=== PATIENT | male | born 1970 | race Caucasian/White ===

== ENCOUNTER 2021-02-13 12:03 | Outpatient (CLI) | payer OTHER, SELFPAY ==
--- NOTE | ~2021-02-13 | XR_ITS ---
EXAMINATION: XR hand LT 2V DATE: 02/13/2021 12:54 INDICATION: Polyarthralgia. TECHNIQUE: 2 views of left hand were obtained. COMPARISON: None. FINDINGS: Bone alignment is normal. No fracture. There is mild osteoarthritis of triscaphe joint, sec ond and third metacarpophalangeal joints, and fifth distal interphalangeal joint. IMPRESSION: 1. Mild polyarticular osteoarthritis. Reviewed, dictated and finalized at location A.
--- NOTE | ~2021-02-13 | XR_ITS ---
EXAMINATION: XR hand RT 2V DATE: 02/13/2021 12:54 INDICATION: Polyarthralgia. TECHNIQUE: 2 views of right hand were obtained. COMPARISON: None. FINDINGS: Bone alignment is normal. No fracture. There are erosions at second proximal interphalangea l joint. There is mild osteoarthritis of third metacarpophalangeal joint. IMPRESSION: 1. Erosions at second proximal interphalangeal joint, consistent with inflammatory arthropathy such a s psoriatic arthritis. Reviewed, dictated and finalized at location A. IMPRESSION: 1. Erosions at second proximal interphalangeal joint, consistent with inflammat ory arthropathy such as psoriatic arthritis.
--- NOTE | ~2021-02-13 | XR_ITS ---
EXAMINATION: XR lumbar spine 2-3V DATE: 02/13/2021 12:54 INDICATION: Polyarthralgia. TECHNIQUE: 3 views of lumbar spine were obtained. COMPARISON: None. FINDINGS: There is 3 degrees dextrocurvature of lumbar spine. Vertebral body heights are normal. Ther e is mildly decreased disc height at L4-L5 and severely decreased disc height at L5-S1. There are end plate osteophytes at most levels. There is multilevel mild facet joint osteoarthritis. IMPRESSION: 1. Severe lower lumbar spondylosis. Reviewed, dictated and finalized at location A.
--- NOTE | ~2021-02-13 | XR_ITS ---
XR knee RT min 4V DATE: 02/13/2021 13:56 INDICATION: Right knee pain TECHNIQUE: [place] and standing AP, PA and lateral views COMPARISON: None FINDINGS: Diffuse osteopenia. There is joint space narrowing and prominent particular spurring at the patellofemoral joint. There has mild periarticular spurring at the medial compartment. No fracture or dislocation or joint effusion. No radiopaque intra-articular loose body or chondrocalc inosis. No periosteal reaction or bone destruction. IMPRESSION: Osteoarthritis involving particularly the patellofemoral and to a lesser extent medial co mpartments Diffuse osteopenia Reviewed, dictated and finalized at location A. IMPRESSION: Osteoarthritis involving particularly the patellofemoral and to a l mary grace extent medial compartments Diffuse osteopenia
--- NOTE | ~2021-02-13 | XR_ITS ---
EXAMINATION: XR foot RT 2V DATE: 02/13/2021 12:54 INDICATION: Polyarthralgia. TECHNIQUE: 2 views of right foot were obtained. COMPARISON: None. FINDINGS: Bone alignment is normal. No fracture. There are erosions at the interphalangeal joints of all of the toes. There are enthesophytes at the posterior and plantar aspects of calcaneal tuberosity . IMPRESSION: 1. Inflammatory arthritis with an interphalangeal joint predominance, most likely psoriatic arthritis . Reviewed, dictated and finalized at location A. IMPRESSION: 1. Inflammatory arthritis with an interphalangeal joint predominance, most like ly psoriatic arthritis.
--- NOTE | ~2021-02-13 | XR_ITS ---
EXAMINATION: XR foot LT 2V DATE: 02/13/2021 12:54 INDICATION: Polyarthralgia. TECHNIQUE: 2 views of left foot were obtained. COMPARISON: None. FINDINGS: There is mild hallux valgus. No fracture. There is mild osteoarthritis of first metatarsoph alangeal joint. There are erosions of all of the interphalangeal joints. There are enthesophytes at t he posterior and plantar aspects of calcaneal tuberosity. IMPRESSION: 1. Inflammatory arthritis with an interphalangeal joint predominance, most likely psoriatic arthritis . Reviewed, dictated and finalized at location A. IMPRESSION: 1. Inflammatory arthritis with an interphalangeal joint predominance, most like ly psoriatic arthritis.
--- NOTE | ~2021-02-13 | XR_ITS ---
EXAMINATION: XR chest 2V DATE: 02/13/2021 12:54 INDICATION: Polyarthralgia. TECHNIQUE: Frontal and lateral views of the chest were obtained. COMPARISON: None. FINDINGS: The chest demonstrates clear lungs without pneumonia, pleural effusion, or pneumothorax. Th e heart size is normal. IMPRESSION: 1. No acute cardiopulmonary disease. Reviewed, dictated and finalized at location A.
--- NOTE | ~2021-02-13 | XR_ITS ---
EXAMINATION: XR sacroiliac joints min 3V DATE: 02/13/2021 12:54 INDICATION: Polyarthralgia. TECHNIQUE: 3 views of the sacroiliac joints were obtained. COMPARISON: None. FINDINGS: Bone alignment is normal. No fracture. There is severe lower lumbar spondylosis. The sacroi liac joints are normal. IMPRESSION: 1. Normal sacroiliac joints. Reviewed, dictated and finalized at location A.
--- NOTE | ~2021-02-13 | XR_ITS ---
XR knee LT min 4V DATE: 02/13/2021 13:56 INDICATION: Left knee pain TECHNIQUE: [place], standing AP, PA and lateral views COMPARISON: None FINDINGS: Diffuse osteopenia. There is prominent joint space narrowing and periarticular spurring at the patellofemoral joint. Mild periarticular spurring at the lateral compartment. No fracture or dislocation or joint effusion. No radiopaque intra-articular loose body or chondrocalc inosis. No periosteal reaction or bone destruction IMPRESSION: Osteoarthritis, involving particularly the patellofemoral compartment Osteopenia Reviewed, dictated and finalized at location A. IMPRESSION: Osteoarthritis, involving particularly the patellofemoral compartme nt Osteopenia
== END 2021-02-13 12:04 | disposition home or self-care (01) ==
PROVIDERS: PCP Family Medicine Sports Medicine; Visit Provider Physician Assistant
DX: M25.50 Pain in unspecified joint (principal); M47.816 Spondylosis without myelopathy or radiculopathy, lumbar region; M13.872 Other specified arthritis, left ankle and foot; M15.9 Polyosteoarthritis, unspecified; M85.88 Other specified disorders of bone density and structure, other site
CPT/HCPCS: 71046; 72100; 72202; 73120; 73560; 73564; 73620

== ENCOUNTER 2021-06-06 19:20 | Emergency (ER) | payer OTHER, SELFPAY ==
--- NOTE | ~2021-06-06 | XR_ITS ---
XR chest 2V DATE: 06/06/2021 19:51 INDICATION: Chest pain TECHNIQUE: [place] and lateral views COMPARISON: 02/13/2021 2 view chest FINDINGS: Normal heart size. No hilar or mediastinal enlargement. No pulmonary infiltrate or consolid ation, pleural effusion or pulmonary vascular congestion or pneumothorax is detected. Degenerative spurring of the thoracic spine. IMPRESSION: No active cardiopulmonary disease Reviewed, dictated and finalized at location A. ERVATION PLANNER
[2021-06-06 19:26] VITALS: BP 158/90; PULSE 75; RESP 20; TEMP 36.9; O2SAT 100
--- NOTE | 2021-06-06 19:32 | ECG_ITS ---
Measurements Intervals [place] Rate: 68 P: 62 MN: 160 QRS: 29 QRSD: 90 T: -11 QT: 392 QTc: 418 Interpretive Statements SINUS RHYTHM BORDERLINE T WAVE ABNORMALITY- INFERIOR LEADS BASELINE ARTIFACT- I, III, AVR, AVL, AVF, V1-V2 BORDERLINE ECG Electronically Signed On 06-06-2021 20:42:04 STRUCTURAL ANALYSIS ENGINEER by Jamil Arias D.O.
[2021-06-06] MEDS: ASPIRIN 81 MG CHEWABLE TABLET 324 MG PO (21:00)
[2021-06-06 21:47] LABS: Basophils Percent Auto 0.3 % (0.2-1.2); Eosinophils Absolute Auto 0.1 K/mm3 (0-0.3); Eosinophils Percent Auto 1.5 % (0-4.4); Hematocrit 46.9 % (42.0-52.0); Hemoglobin 16.5 g/dL (14.0-18.0); Immature Granulocyte Absolute 0.01 K/mm3 (0.00-0.031); Immature Granulocyte Percent A 0.1 % (0-0.5); Lymphocytes Percent Auto 39.1 % (18.3-44.2); Mean Corpuscular HGB Conc 35.2 g/dl (32-36); Mean Corpuscular Hemoglobin 32.5 pg (26-34); Mean Corpuscular Volume 92.5 fl (80-100); Monocytes Absolute Auto 0.6 K/mm3 (0.1-0.6); Monocytes Percent Auto 6.9 % (2.6-8.5); Neutrophils Absolute Auto 4.7 K/mm3 (1.3-6.7); Neutrophils Percent Auto 52.1 % (45.5-73.1); Platelet Count Result 210 k/mm3 (150-375); Red Blood Count 5.07 M/mm3 (4.6-6.20); Red Cell Distribution Width 12.4 % (11.5-14.5)
[2021-06-06 21:56] LABS: Prothrombin Time 12.6 Seconds (11.1-14.7)
[2021-06-06 21:57] LABS: Alanine Aminotransferase 41 U/L (4-50); Albumin Level 4.8 g/dL (3.5-5.1); Alkaline Phosphatase 60 U/L (38-126); Anion Gap 3 mmol/L (8-16); Aspartate Amino Transferase 40 U/L (17-59); Bilirubin,Total 0.7 mg/dL (0.2-1.3); Blood Urea Nitrogen 9 mg/dL (9-20); Calcium 9.2 mg/dL (8.4-10.2); Carbon Dioxide 33 mmol/L (22-30); Chloride 101 mmol/L (98-107); Estimated CRCL calculation 115 ml/min; Estimated Glomerular Filt Rate > 60; Glucose 91 mg/dL (65-110); Lipase 41 U/L (23-300); Partial Thromboplastin Time 30.8 SECONDS (22.3-36.8); Potassium 4.2 mmol/L (3.4-5.0); Sodium 137 mmol/L (137-145)
[2021-06-06 22:09] LABS: Troponin I < 0.012 ng/mL (0.000-0.034)
[2021-06-06] MEDS: Please add drug allergy info to patient profile. 1 EACH XX (22:35)
[2021-06-06 22:45] VITALS: BP 132/82; PULSE 61; RESP 18; TEMP 36.6; O2SAT 99
--- NOTE | 2021-06-06 22:53 | ED.GENADULT ---
HPI - General Adult General Chief complaint: Chest Pain Stated complaint: chest pain/ epigastric Time Seen by Provider: 06/06/21 22:34 History of Present Illness HPI narrative: Patient is a 50-year-old gentleman who presents the emergency department with chief complaint of chest pain. Patient reports for the last month he has had discomfort in his left side of his chest. Patient states that its been bothering him the complaint time and not coming and going. Patient states that of time he arrived to the emergency department today he had a initial bowel movement started to feel little better and then had a second large bowel movement and feels much better at this time. The patient denies diaphoresis denies shortness of breath reports just has history of hypothyroidism rheumatoid arthritis and he does smoke. Patient denies history of cardiac disease Related Data Allergies Allergy/AdvReac Type Severity Reaction Status Date / Time Penicillins Allergy Rash Verified 06/06/21 21:36 Review of Systems Review of Systems: A 10 system review of systems was completed on the patient and is negative except for what is stated in the HPI. Nursing and ancillary documentation was reviewed. Exam Narrative: GENERAL: Well-appearing, well-nourished, and in no acute distress. HEAD: Normocephalic, atraumatic. EYES: PERRLA and EOMI. ENT: Nares clear, no rhinorrhea or epistaxis. Mucous membranes moist. NECK: Supple. CHEST: Clear to auscultation. No respiratory distress. HEART: Regular rate and rhythm. No murmur heard. Normal peripheral pulses. ABDOMEN: Soft, nontender, nondistended, normal active bowel sounds. EXTREMITIES: Normal range of motion. No edema. SKIN: Warm, dry, no rash. NEURO: No focal deficits. Alert and oriented x3. PSYCH: Normal mood and affect. Course Course Emergency Course: EKG sinus rhythm rate of [address] elevation or ST depression Vital Signs Vital signs: Vital Signs Temperature 36.9 C 06/06/21 19:26 Pulse Rate 75 06/06/21 19:26 Respiratory Rate 20 06/06/21 19:26 Blood Pressure 158/90 H 06/06/21 19:26 Pulse Oximetry 100 06/06/21 19:26 Temperature 36.6 C 06/06/21 22:45 Pulse Rate 61 06/06/21 22:45 Respiratory Rate 18 06/06/21 22:45 Blood Pressure 132/82 06/06/21 22:45 Pulse Oximetry 99 06/06/21 22:45 Medical Decision Making Vital Signs Vital Signs: Vital Signs Temperature 36.9 C 06/06/21 19:26 Pulse Rate 75 06/06/21 19:26 Respiratory Rate 20 06/06/21 19:26 Blood Pressure 158/90 H 06/06/21 19:26 Pulse Oximetry 100 06/06/21 19:26 Temperature 36.6 C 06/06/21 22:45 Pulse Rate 61 06/06/21 22:45 Respiratory Rate 18 06/06/21 22:45 Blood Pressure 132/82 06/06/21 22:45 Pulse Oximetry 99 06/06/21 22:45 Lab Data Result diagrams: 06/06/21 21:38 06/06/21 21:39 Labs: Lab Results 06/06/21 06/06/21 06/06/21 Range/Units 21:38 21:39 21:39 WBC 9.0 (4.5-10.0) K/mm3 RBC 5.07 (4.6-6.20) M/mm3 Hgb 16.5 (14.0-18.0) g/dL Hct 46.9 (42.0-52.0) % MCV 92.5 (80-100) fl MCH 32.5 (26-34) pg MCHC 35.2 (32-36) g/dl RDW 12.4 (11.5-14.5) % Plt Count 210 (150-375) k/mm3 MPV 10.0 (7.4-10.4) fl Immature Gran % (Auto) 0.1 (0-0.5) % Neut % (Auto) 52.1 (45.5-73.1) % Lymph % (Auto) 39.1 (18.3-44.2) % [place] % (Auto) 6.9 (2.6-8.5) % Eos % (Auto) 1.5 (0-4.4) % Baso % (Auto) 0.3 (0.2-1.2) % Lymph # (Auto) 3.50 H (0.9-3.2) K/mm3 [place] # (Auto) 0.6 (0.1-0.6) K/mm3 Eos # (Auto) 0.1 (0-0.3) K/mm3 Baso # (Auto) 0.0 (0.0-0.1) K/mm3 Abs Immat Gran (auto) 0.01 (0.00-0.031) K/mm3 Absolute Neuts (auto) 4.7 (1.3-6.7) K/mm3 Absolute Nucleated RBC 0.0 (0.0-0.012) K/mm3 Nucleated RBC % 0.0 (0.0-0.2) % PT 12.6 (11.1-14.7) Seconds INR 1.0 APTT 30.8 (22.3-36.8) SECONDS Sodium 137 (137-145) mmol/L Potassium 4.2 (3
== END 2021-06-06 23:45 | disposition home or self-care (01) ==
PROVIDERS: Emergency Provider Emergency Medicine; PCP Family Medicine Sports Medicine
DX: R07.89 Other chest pain (principal); R94.31 Abnormal electrocardiogram [ECG] [EKG]
CPT/HCPCS: 36415; 71046; 80053; 83690; 84484; 85025; 85610; 85730; 93005; 99284; A9270

== ENCOUNTER 2022-02-11 16:37 | Emergency (ER) | payer OTHER, SELFPAY ==
--- NOTE | ~2022-02-11 | CT_ITS ---
EXAMINATION: CT abdomen pelvis w con DATE: 02/11/2022 20:41 INDICATION: Abdominal bloating. TECHNIQUE: Computed tomography (CT) of the abdomen and pelvis was performed with 100 cc Omnipaque 350 intravenous contrast. The dose-length product was 1239.67 mGy-cm. Automated exposure control and ite rative reconstruction technique were employed. COMPARISON: None. FINDINGS: There is dependent atelectasis. Heart size normal. No significant pleural or pericardial ef fusion. The liver, spleen, pancreas, adrenal glands and kidneys are unremarkable. Nonobstructive silvana l gas pattern. No free air or free fluid. Colonic diverticulosis without evidence for diverticulitis. No significant vascular abnormality. No lymphadenopathy. There is degenerative disc disease at L4-5 and L5-S1. No acute fracture or traumatic malalignment. IMPRESSION: 1. No acute abdominal abnormality. Reviewed, dictated and finalized at location A.
[2022-02-11 16:41] VITALS: BP 141/82; PULSE 85; RESP 20; TEMP 36.9; O2SAT 100
[2022-02-11 17:00] LABS: Basophils Percent Auto 0.3 % (0.2-1.2); Eosinophils Absolute Auto 0.2 K/mm3 (0-0.3); Eosinophils Percent Auto 1.8 % (0-4.4); Hematocrit 48.1 % (42.0-52.0); Hemoglobin 16.6 g/dL (14.0-18.0); Immature Granulocyte Absolute 0.03 K/mm3 (0.00-0.031); Immature Granulocyte Percent A 0.3 % (0-0.5); Lymphocytes Absolute Auto 2.66 K/mm3 (0.9-3.2); Lymphocytes Percent Auto 27.3 % (18.3-44.2); Mean Corpuscular HGB Conc 34.5 g/dl (32-36); Mean Corpuscular Hemoglobin 32.9 pg (26-34); Mean Corpuscular Volume 95.4 fl (80-100); Mean Platelet Volume 10.1 fl (7.4-10.4); Monocytes Absolute Auto 0.5 K/mm3 (0.1-0.6); Monocytes Percent Auto 5.5 % (2.6-8.5); Neutrophils Absolute Auto 6.3 K/mm3 (1.3-6.7); Neutrophils Percent Auto 64.8 % (45.5-73.1); Platelet Count Result 270 k/mm3 (150-375); Red Blood Count 5.04 M/mm3 (4.6-6.20); Red Cell Distribution Width 13.7 % (11.5-14.5); White Blood Count 9.8 K/mm3 (4.5-10.0)
[2022-02-11 17:10] LABS: Alanine Aminotransferase 40 U/L (6-50); Albumin Level 4.8 g/dL (3.5-5.1); Alkaline Phosphatase 72 U/L (38-126); Anion Gap 10 mmol/L (8-16); Aspartate Amino Transferase 35 U/L (17-59); Bilirubin,Total 0.8 mg/dL (0.2-1.3); Blood Urea Nitrogen 17 mg/dL (9-20); Carbon Dioxide 28 mmol/L (22-30); Chloride 103 mmol/L (98-107); Estimated CRCL calculation 116 ml/min; Estimated Glomerular Filt Rate > 60; Glucose 85 mg/dL (65-110); Potassium 4.4 mmol/L (3.4-5.0); Sodium 141 mmol/L (137-145)
[2022-02-11 17:11] LABS: INR 0.9; Prothrombin Time 12.2 Seconds (11.1-14.7)
[2022-02-11 17:12] LABS: Partial Thromboplastin Time 29.6 SECONDS (22.3-36.8)
--- NOTE | 2022-02-11 19:29 | ED.GENADULT ---
HPI - General Adult General Chief complaint: GI Bleed Stated complaint: dark tarry stools Time Seen by Provider: 02/11/22 19:20 History of Present Illness HPI narrative: 51-year-old male presented the emergency department for evaluation of sore throat heartburn and dark stools. Patient had been on Humira in the beginning of the year for psoriatic arthritis and states he may have developed a GI bleed from that, he was having similar symptoms to the Humira Patient stopped the Humira and has since been taking methotrexate. Patient states over the last few days he has had increasing sore throat heartburn and some dark stools. Patient denies any associated abdominal pain but does report abdominal bloating. Patient does have a history of psoriatic arthritis Related Data Allergies Allergy/AdvReac Type Severity Reaction Status Date / Time Penicillins Allergy Rash Verified 06/06/21 21:36 Review of Systems Review of Systems: CONSTITUTIONAL: Denies fever, chills, or sweats. EYES: Denies visual changes, redness, or discharge. ENT: Denies rhinorrhea, congestion, sore throat, or otalgia. CARDIOVASCULAR: Denies chest pain, palpitations, or edema. RESPIRATORY: Denies cough or dyspnea. GASTROINTESTINAL: See HPI GENITOURINARY: Denies dysuria or hematuria. SKIN: Denies rash or itching. MUSCULOSKELETAL: Denies back pain, joint pain, or myalgia. NEUROLOGIC: Denies headache, numbness, or weakness. Exam Narrative: APPEARANCE: Well appearing, no pain, no distress, well-nourished. HEAD: normocephalic, atraumatic. EYES: PERRLA/EOMI, conjunctivae clear. NOSE: Normal no drainage THROAT: Pharynx clear, no exudate. NECK: Supple. No adenopathy, no masses. RESPIRATORY: Airway patent, respirations nonlabored. Clear to auscultation bilaterally, no rales, rhonchi, wheezing. CARDIOVASCULAR: Regular rate and rhythm without murmurs rubs or gallops. ABDOMINAL: Soft, nontender, nondistended, normal bowel sounds MUSCULOSKELETAL: Moves all extremities. Strength/ROM intact, No edema, No calf tenderness. NEURO: Alert. Cranial nerves II through XII intact. Grossly intact SKIN: Warm, dry. Normal Color Course Course Emergency Course: Patient was Hemoccult negative on the [facility]. Patient's labs are within normal limits. Patient had a CT scan showing no acute abdominal abnormality. Patient was updated on results his exam labs and CT. Patient was encouraged of close follow-up with his primary care physician. All question concerns were addressed. Vital Signs Vital signs: Vital Signs Temperature 98.5 F 02/11/22 16:41 Pulse Rate 85 02/11/22 16:41 Respiratory Rate 20 02/11/22 16:41 Blood Pressure 141/82 H 02/11/22 16:41 Pulse Oximetry 100 02/11/22 16:41 Oxygen Delivery Room Air 02/11/22 16:41 Temperature 98.5 F 02/11/22 16:41 Pulse Rate 85 02/11/22 16:41 Respiratory Rate 20 02/11/22 16:41 Blood Pressure 141/82 H 02/11/22 16:41 Pulse Oximetry 100 02/11/22 16:41 Oxygen Delivery Room Air 02/11/22 16:41 Medical Decision Making Vital Signs Vital Signs: Vital Signs Temperature 98.5 F 02/11/22 16:41 Pulse Rate 85 02/11/22 16:41 Respiratory Rate 20 02/11/22 16:41 Blood Pressure 141/82 H 02/11/22 16:41 Pulse Oximetry 100 02/11/22 16:41 Oxygen Delivery Room Air 02/11/22 16:41 Temperature 98.5 F 02/11/22 16:41 Pulse Rate 85 02/11/22 16:41 Respiratory Rate 20 02/11/22 16:41 Blood Pressure 141/82 H 02/11/22 16:41 Pulse Oximetry 100 02/11/22 16:41 Oxygen Delivery Room Air 02/11/22 16:41 Lab Data Result diagrams: 02/11/22 16:52 02/11/22 16:52 Labs: Lab Results 02/11/22 02/11/22 02/11/22 Range/Units 16:52 16:52 16:52 WBC 9.8 (4.5-10.0) K/mm3 RBC 5.04 (4.6-6.20) M/mm3 Hgb 16.6 (14.0-18.0) g/dL Hct 48.1 (42.0-52.0) % MCV 95.4 (80-100) fl MCH 32.9 (26-34) pg MCHC 34.5 (32-36) g/dl RDW 13.7 (11.5-14.
== END 2022-02-11 21:19 | disposition home or self-care (01) ==
PROVIDERS: Emergency Medicine; Emergency Provider Emergency Medicine; PCP Family Medicine Sports Medicine
DX: R14.0 Abdominal distension (gaseous) (principal); K59.00 Constipation, unspecified; L40.50 Arthropathic psoriasis, unspecified
CPT/HCPCS: 36415; 74177; 80053; 85025; 85610; 85730; 86850; 86900; 86901; 87880; 99284; Q9967

== ENCOUNTER 2022-09-05 09:24 | Emergency (ER) | payer OTHER, SELFPAY ==
[2022-09-05] VITALS (7 sets, daily range): BP systolic 114–126; BP diastolic 67–87; PULSE 62–109; RESP 18; O2SAT 99–100
--- NOTE | ~2022-09-05 | CT_ITS ---
EXAMINATION: CT abdomen pelvis w con DATE: 09/05/2022 12:44 INDICATION: Left buttock/perirectal abscess. TECHNIQUE: Computed tomography (CT) of the abdomen and pelvis was performed with 100 mL Omnipaque-350 intravenous contrast. Automated exposure control and iterative reconstruction technique were employe d. The dose-length product was 1154.95 mGy-cm. COMPARISON: 02/11/2022 FINDINGS: Mild dependent atelectasis in bilateral lower lobes. Heart size is normal. No pericardial or pleural effusion. Liver, gallbladder, spleen, pancreas, bilateral adrenal glands and kidneys are normal. Anuradha ls including the appendix are normal. Bladder and prostate are normal. No free intraperitoneal gas or fluid. No pathologically enlarged abdominal or pelvic lymphadenopathy. There is prominent stranding and several foci of gas in the subcutaneous fat of the superficial post anal space at the left inferior aspect of the left gluteal cleft which all remain superficial to the levator ani muscles. Discussion with Dr. Brooks there is open draining wound at the skin surface wh ich can account for the soft tissue gas. No evident extension to the deep post anal space. No evident drainable abscess. IMPRESSION: 1. Cellulitis with stranding and soft tissue gas in the superficial post anal space consistent with c ellulitis. No loculated fluid containing abscess or extension deep to the levator ani muscles. Reviewed, dictated and finalized at location A. IMPRESSION: 1. Cellulitis with stranding and soft tissue gas in the superficial post anal s pace consistent with cellulitis. No loculated fluid containing abscess or exten isiah deep to the levator ani muscles.
[2022-09-05 10:35] LABS: Basophils Percent Auto 0.3 % (0.2-1.2); Eosinophils Absolute Auto 0.2 K/mm3 (0-0.3); Eosinophils Percent Auto 2.1 % (0-4.4); Hematocrit 42.3 % (42.0-52.0); Hemoglobin 14.5 g/dL (14.0-18.0); Immature Granulocyte Absolute 0.17 K/mm3 (0.00-0.031); Immature Granulocyte Percent A 1.5 % (0-0.5); Lymphocytes Absolute Auto 1.44 K/mm3 (0.9-3.2); Lymphocytes Percent Auto 12.3 % (18.3-44.2); Mean Corpuscular HGB Conc 34.3 g/dl (32-36); Mean Corpuscular Hemoglobin 32.4 pg (26-34); Mean Corpuscular Volume 94.6 fl (80-100); Mean Platelet Volume 8.9 fl (7.4-10.4); Monocytes Absolute Auto 0.5 K/mm3 (0.1-0.6); Monocytes Percent Auto 3.9 % (2.6-8.5); Neutrophils Absolute Auto 9.4 K/mm3 (1.3-6.7); Neutrophils Percent Auto 79.9 % (45.5-73.1); Platelet Count Result 474 k/mm3 (150-375); Red Blood Count 4.47 M/mm3 (4.6-6.20); White Blood Count 11.7 K/mm3 (4.5-10.0)
[2022-09-05 10:47] LABS: Prothrombin Time 13.6 Seconds (11.1-14.7)
[2022-09-05 10:48] LABS: Partial Thromboplastin Time 30.7 SECONDS (22.3-36.8)
[2022-09-05 10:50] LABS: Alanine Aminotransferase 27 U/L (6-50); Albumin Level 3.6 g/dL (3.5-5.1); Alkaline Phosphatase 83 U/L (38-126); Anion Gap 7 mmol/L (8-16); Aspartate Amino Transferase 21 U/L (17-59); Bilirubin,Total 0.7 mg/dL (0.2-1.3); Blood Urea Nitrogen 11 mg/dL (9-20); Calcium 8.5 mg/dL (8.4-10.2); Carbon Dioxide 30 mmol/L (22-30); Chloride 101 mmol/L (98-107); Estimated CRCL calculation 113 ml/min; Estimated Glomerular Filt Rate > 60; Glucose 132 mg/dL (65-110); Potassium 3.3 mmol/L (3.4-5.0); Sodium 138 mmol/L (137-145)
--- NOTE | 2022-09-05 11:33 | ED.GENADULT ---
HPI - General Adult General Chief complaint: GI Bleed Stated complaint: bleeding hemorrhoid Time Seen by Provider: 09/05/22 10:46 History of Present Illness HPI narrative: 51-year-old male presented to the emergency department for evaluation of left buttock pain for which he suspected was an evolving hemorrhoid. Patient states approximately 2 weeks ago he first noticed the pain around the anus. Patient states he did have follow-up with his primary care physician and the hemorrhoid was confirmed. Patient states he continued to have worsening pain and symptoms. Patient states a few weeks ago he did have onset of fever. Patient reports that he has also had some drainage over the last few days. Patient denies any prior history of hemorrhoids and denies any prior history of perirectal or perianal abscesses Related Data Allergies Allergy/AdvReac Type Severity Reaction Status Date / Time Penicillins Allergy Rash Verified 06/06/21 21:36 Review of Systems Review of Systems: All systems reviewed & are unremarkable except as noted in HPI and below Exam Narrative: APPEARANCE: Well appearing, no pain, no distress, well-nourished. HEAD: normocephalic, atraumatic. EYES: PERRLA/EOMI, conjunctivae clear. NOSE: Normal no drainage NECK: Supple. No adenopathy, no masses. RESPIRATORY: Airway patent, respirations nonlabored. Clear to auscultation bilaterally, no rales, rhonchi, wheezing. CARDIOVASCULAR: Regular rate and rhythm without murmurs rubs or gallops. Rectal exam: Large draining abscess on left buttock ABDOMINAL: Soft, nontender, nondistended, normal bowel sounds MUSCULOSKELETAL: Moves all extremities. Strength/ROM intact, No edema, No calf tenderness. NEURO: Alert. Cranial nerves II through XII intact. Grossly intact SKIN: Warm, dry. Normal Color Course Course Emergency Course: 51-year-old male presented the emergency department for evaluation of a draining abscess on his buttock. Patient is afebrile but does have a leukocytosis of 11.7. Patient's CMP is similar to his baseline. CT scan did show a draining abscess with no involvement of the deep structures. Surgery was consulted and Dr. Ruiz will see the patient as consult. Cipro and Flagyl in the emergency department. Patient was also discharged home on Cipro and Flagyl. Patient was encouraged to do sitz bath. Patient was updated on the importance of close follow-up with surgery. Patient was comfortable with the plan with discharge and close follow-up. All question concerns were addressed. Patient was well-appearing at time of discharge. Vital Signs Vital signs: Vital Signs Pulse Rate 109 H 09/05/22 10:10 Respiratory Rate 18 09/05/22 10:10 Blood Pressure 126/87 09/05/22 10:10 Pulse Oximetry 99 09/05/22 10:10 Oxygen Delivery Room Air 09/05/22 10:10 Pulse Rate 71 09/05/22 16:56 Respiratory Rate 18 09/05/22 16:56 Blood Pressure 114/71 09/05/22 16:56 Pulse Oximetry 99 09/05/22 16:56 Oxygen Delivery Room Air 09/05/22 10:10 Medical Decision Making Vital Signs Vital Signs: Vital Signs Pulse Rate 109 H 09/05/22 10:10 Respiratory Rate 18 09/05/22 10:10 Blood Pressure 126/87 09/05/22 10:10 Pulse Oximetry 99 09/05/22 10:10 Oxygen Delivery Room Air 09/05/22 10:10 Pulse Rate 71 09/05/22 16:56 Respiratory Rate 18 09/05/22 16:56 Blood Pressure 114/71 09/05/22 16:56 Pulse Oximetry 99 09/05/22 16:56 Oxygen Delivery Room Air 09/05/22 10:10 Lab Data Lab results reviewed: Yes I reviewed the patient's lab results. 09/05/22 10:27 09/05/22 10:27 Labs: Lab Results 09/05/22 Range/Units 10:27 WBC 11.7 H (4.5-10.0) K/mm3 RBC 4.47 L (4.6-6.20) M/mm3 Hgb 14.5 (14.0-18.0) g/dL Hct 42.3 (42.0-52.0) % MCV 94.6 (80-100) fl MCH 32.4 (26-34) pg MCHC 34.3 (32-36) g/dl RDW 13.0 (11.5-14.5) % Plt Count 474 H D (150-375) k/mm3 MPV 8.9 (7.4-10
[2022-09-05] MEDS: metroNIDAZOLE 500 MG/ISO 100ML 500 MG/100 ML BAG 100 MG IVPB (14:11)
== END 2022-09-05 16:59 | disposition home or self-care (01) ==
PROVIDERS: Emergency Provider Emergency Medicine; PCP Family Medicine Sports Medicine
DX: L02.31 Cutaneous abscess of buttock (principal)
CPT/HCPCS: 36415; 74177; 80053; 85025; 85610; 85730; 86850; 86900; 86901; 96365; 96367; 99284; J1956; Q9967